=== PATIENT | male | born 1960 | race American Indian/Alaskan Native ===

== ENCOUNTER 2017-03-18 08:57 | Outpatient (CLI) | payer OTHER ==
--- NOTE | 2017-03-18 16:44 | XRay Report ---
XRAY BILATERAL KNEE FOUR VIEWS EACH: 03/18/17 08:57:00 CLINICAL: Bilateral knee pain. No comparison. FINDINGS: Right: Mild osteopenia. The medial and lateral joint spaces are normal. Mild patellofemoral joint osteoarthritis. A prominent quadriceps enthesophyte. No fracture or dislocation. No joint effusion. Normal soft tissues. Left: Moderate osteopenia. Status post total joint replacement with normal appearance of the prosthesis. No fracture or dislocation. No joint effusion. Normal soft tissues. 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
== END 2017-03-18 08:58 | disposition home or self-care (01) ==
LOC: SPVIMAG 08:57
PROVIDERS: ATTEND Orthopaedic Surgery Sports Medicine
DX: M17.11 Unilateral primary osteoarthritis, right knee (principal); M85.861 Other specified disorders of bone density and structure, right lower leg; M85.862 Other specified disorders of bone density and structure, left lower leg; M77.8 Other enthesopathies, not elsewhere classified; Z96.652 Presence of left artificial knee joint